=== PATIENT | female | born 1975 | race Caucasian/White ===

== ENCOUNTER 2025-06-23 02:26 | Emergency (ER) | payer OTHER, SELFPAY ==
[2025-06-23 02:33] VITALS: BP 146/97; PULSE 93; O2SAT 100
[2025-06-23 02:35] VITALS: BP 146/97; PULSE 97; RESP 18; TEMP 36.6; O2SAT 100; BMI 33.3
--- NOTE | 2025-06-23 02:40 | CT_ITS ---
PROCEDURE INFORMATION: Exam: CT Abdomen And Pelvis With Contrast Exam date and time: 06/23/2025 3:30 AM Age: 50 years old Clinical indication: Abdominal pain; Additional info: Diffuse low discomfort, constipation, back injury TECHNIQUE: Imaging protocol: Computed tomography of the abdomen and pelvis with contrast. Radiation optimization: All CT scans at this facility use at least one of these dose optimization techniques: automated exposure control; mA and/or kV adjustment per patient size (includes targeted exams where dose is matched to clinical indication); or iterative reconstruction. Contrast material: ISOVUE; Contrast volume: 75 ml; Contrast route: IV; COMPARISON: CT LUMBAR SPINE WO CON 06/23/2025 3:28 AM FINDINGS: Liver: Normal. No mass. Gallbladder and biliary ducts: Cholecystectomy. Pancreas: Normal. No ductal dilation. Spleen: Normal. No splenomegaly. Adrenal glands: Normal. No mass. Kidneys and ureters: Normal. No hydronephrosis. Stomach and bowel: Unremarkable. No obstruction. No mucosal thickening. Appendix: No evidence of appendicitis. Intraperitoneal space: Unremarkable. No free air. No significant fluid collection. Vasculature: Unremarkable. No abdominal aortic aneurysm. Lymph nodes: Unremarkable. No enlarged lymph nodes. Urinary bladder: Unremarkable as visualized. Reproductive: Hysterectomy. Bones/joints: Mild L1 compression deformity. Soft tissues: Unremarkable. IMPRESSION: 1. No acute intra-abdominal findings. 2. Mild L1 compression deformity.
--- NOTE | 2025-06-23 02:40 | CT_ITS ---
PROCEDURE INFORMATION: Exam: CT Lumbar Spine Without Contrast Exam date and time: 06/23/2025 3:28 AM Age: 50 years old Clinical indication: Injury or trauma; Other: Lifting injury ttp low lumbar; Additional info: Lifting injury ttp low lumbar, no deficits TECHNIQUE: Imaging protocol: Computed tomography of the lumbar spine without contrast. Radiation optimization: All CT scans at this facility use at least one of these dose optimization techniques: automated exposure control; mA and/or kV adjustment per patient size (includes targeted exams where dose is matched to clinical indication); or iterative reconstruction. COMPARISON: No relevant prior studies available. FINDINGS: Bones/joints: Mild L1 compression fracture. No associated central canal narrowing. L1-L2: No significant disc bulge or herniation. No severe spinal canal stenosis. No significant neural foraminal narrowing. L2-L3: No significant disc bulge or herniation. No severe spinal canal stenosis. No significant neural foraminal narrowing. L3-L4: No significant disc bulge or herniation. No severe spinal canal stenosis. No significant neural foraminal narrowing. L4-L5: No significant disc bulge or herniation. No severe spinal canal stenosis. No significant neural foraminal narrowing. L5-S1: Left lateral disc bulge and marginal osteophytosis. No severe spinal canal stenosis. Hypertrophic facet arthropathy with moderate left foraminal stenosis. Soft tissues: Unremarkable. IMPRESSION: Mild L1 compression fracture. Degenerative changes with moderate left foraminal stenosis at L5-S1.
[2025-06-23 02:45] VITALS: BP 126/75; PULSE 70; O2SAT 98
[2025-06-23 02:46] LABS: Hematocrit 34.1 % (37.0-47.0); Hemoglobin 11.3 g/dL (12.2-16.2); Immature Granulocytes % 0.3 %; Mean Corpuscular HGB Conc 33.1 g/dL (31.8-35.4); Mean Corpuscular Hemoglobin 28.6 pg (27.0-31.2); Mean Corpuscular Volume 86.3 fl (81-99); Nucleated Red Blood Cells % 0 %; Platelet Count 206 K/mm3 (142-424); Red Blood Count 3.95 M/mm3 (4.20-5.40); Red Cell Distribution Width-SD 42.8 fL; White Blood Count 7.8 K/mm3 (4.8-10.8)
[2025-06-23] MEDS: LIDOCAINE 5% TRANSDERMAL PATCH 1 EACH TD (02:50)
[2025-06-23] MEDS: METHOCARBAMOL 500MG TABLET 500 MG PO (02:50)
[2025-06-23] MEDS: KETOROLAC 30MG/ML VIAL 30 MG IV (02:50)
[2025-06-23] MEDS: ACETAMINOPHEN 500MG TAB 1000 MG PO (02:50)
[2025-06-23 02:56] LABS: Alanine Aminotransferase 42 U/L (12-78); Albumin Level 4.3 g/dl (3.5-5.0); Albumin/Globulin Ratio 1.4 (1.1-1.8); Alkaline Phosphatase 131 U/L (38-126); Anion Gap 13.0 mEq/L (5-15); Aspartate Amino Transferase 40 U/L (14-36); Bilirubin,Total 0.5 mg/dl (0.2-1.3); Blood Urea Nitrogen 11 mg/dl (7-17); Calcium 9.7 mg/dl (8.4-10.2); Carbon Dioxide 23 mmol/L (22.0-30.0); Chloride 106 mmol/L (98-107); Creatinine Clearance Estimated 148 mL/min (50-200); Creatinine,Serum 0.70 mg/dl (0.52-1.04); Estimated Glomerular Filt Rate 89 ml/min (>60); GFR (African American) 108 ML/MIN (>60); Globulin 3.1 g/dL (1.3-3.2); Glucose 175 mg/dl (74-100); Potassium 4.0 mmoL/L (3.5-5.1); Sodium 138 mmol/L (136-145); Total Protein,Serum 7.4 g/dl (6.3-8.2)
[2025-06-23 03:01] VITALS: BP 124/76; PULSE 80; O2SAT 99
[2025-06-23 03:16] VITALS: BP 115/74; PULSE 81; O2SAT 99
--- NOTE | 2025-06-23 03:18 | HMH.EDGENADL ---
Discharge Plan Disposition Patient Disposition: Home, Self-Care Condition: Good Prescriptions Prescriptions: New ketorolac 10 mg tablet 10 mg PO Q8H PRN (Reason: pain) 5 Days Qty: 14 0RF methocarbamol 500 mg tablet 500 mg PO Q6H PRN (Reason: muscle spasm) Qty: 30 0RF lidocaine 5 % adhesive patch,medicated See Rx Instructions .ROUTE .COMPLEX Qty: 15 0RF Rx Instructions: Apply to most painful area and leave on for 12 hours. Remove and leave off for 12 hours before using a new patch. Referrals Follow up/Referrals: Washington Silveira DO [Staff Physician, Orthopedics] - See instructions Referral Note: L1 compression deformity, mild. Recheck. Provider,Referral, MD [Primary Care Provider, Medical] - See instructions Activity Restrictions/Add. Instructions Additional Instructions/Restrictions: You were evaluated in the ER and are believed to be appropriate for discharge at this time. Take the prescribed medications as directed. Do not drive or operate machinery after taking the methocarbamol which is a muscle relaxer. This medication can make you sleepy. You have been prescribed ketorolac (Toradol). This is the same drug class as ibuprofen, Motrin, Aleve. Do not take these medications together. If you choose to use any of these medications, only use one of them. They should not be used in combination. You can also take Tylenol, do not exceed the recommended dose on the bottle. Drink water and eat a small snack each time you take your medications to avoid side effects. Remove the lidocaine patch around 3 PM today, 06/23/2025. Make an appointment with your primary care doctor for reevaluation on Wednesday or Wednesday. They should be the ones to clear you to go back to work. Ask them about referral for MRI and physical therapy if you continue to have pain. You have also been referred to Dr. Silveira with orthopedics for outpatient follow-up. Call their office for an appointment. Return to the ER with any new, worsening, or otherwise concerning symptoms including but not limited to numbness, weakness, incontinence, or anything else you are worried about. Clinical Impressions Clinical Impression: Low back pain, Compression fracture of L1 vertebra Stand Alone Forms Stand Alone Forms: Work/School Release Instructions Patient Instructions: DI for Low Back Pain Discharge ED Provider: Rosaline Otoole Adult HPI General Chief complaint: Back Pain/Injury Stated complaint: back injury, fall, shortness of breath, abd pain Time Seen by Provider: 06/23/25 02:36 Mode of Arrival: Ambulatory Source of Information: Patient Description of Symptoms (Recalled from ER Triage Doc. by RN): pt presents to the Ed d/t lifting a patient and heard in three different spots in her lower back pop. pt states 8/10 back pain. 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 Patient reports a history of rheumatoid arthritis. 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 She was able to get herself up and has been ambulatory since that time but still has low back pain. Patient also reports having constipation and low abdominal pain. No dysuria or hematuria. No fevers or chills. Patient has been able to walk, she has no saddle anesthesia, no bowel or bladder incontinence. No numbness, tingling, or weakness. Pain does not radiate down the legs. She has no history of previous injuries like this. She has no other complaints or concerns. Patient took Aleve a few hours ago. No other medications prior to arrival. Related Data Previous Rx's ?Medication ?Instructions ?Recorded ketorolac 10 mg tablet 10 mg PO Q8H PRN pain 5 days #14 06/23/25 tabs lidocaine 5 % topical patch See Rx Instructions topical 06/23/25 .COMPLEX #15 ea methocarbamol 500 mg tablet 500 mg PO Q6H PRN muscle spasm #30 06/23/25 tabs Allergies Allergy/AdvReac Type Severity Reaction Status Date / Time latex Allergy Anaphylaxis Verified 06/23/25 02:39 codeine AdvReac Other Verified 06/23/25 02:[address] [facility] Disclaimer: The information contained in this section may have been updated after the patient was seen, as this information can be updated by other users. Social History Smoking Status: Unknown if ever smoked alcohol intake: never current occupational status: employed Travel in the last 8 weeks?: None ROS Obtained: Yes Systems reviewed as appropriate & no additional complaints except as documented per HPI Physical Exam General General appearance: alert and in no apparent distress Head Head exam: atraumatic and normocephalic Eye Eye exam: Present PERRL and EOMI ENT ENT exam: Present mucous membranes moist Neck Neck exam: Present normal inspection and full ROM Chest Chest inspection: Present symmetric chest wall rise Respiratory Respiratory exam: Present normal lung sounds bilaterally; Absent respiratory distress, wheezes or stridor Cardiovascular Cardiovascular exam: Present regular rate and normal rhythm Abdominal Exam Abdominal exam: Present soft and tenderness (Mild diffuse lower abdomen); Absent distention, guarding or rebound Extremities Exam Extremities exam: Present full ROM Back Exam Back exam: Present tenderness (Midline low back tenderness in the L3-L5 area with no deformity or step-off, no crepitus, no swelling or bruising); Absent CVA tenderness (R), CVA tenderness (L), sciatic notch tenderness (R) or sciatic notch tenderness (L) Neurological Exam Neurological exam: Present alert, oriented X3, CN II-XII intact, normal gait and other (No saddle anesthesia); Absent motor sensory deficit Psychiatric Psychiatric exam: Present normal affect and normal mood Skin Skin exam: Present warm and dry Medical Decision Making Medical Records Medical records reviewed: Yes I reviewed the patient's medical records. Screening: Per USPSTF and CDC recommendations, given the prevalence of disease in our region, it is our hospital?s policy to screen for HIV and viral Hepatitis for all patients aged 18 and over and those with ongoing risk factors. Patrick Inquiry Pt receiving controlled substance: No Vital Signs: 06/23/25 02:33 06/23/25 02:35 06/23/25 02:45 Temperature 97.8 F Temperature Source Oral Pulse Rate 93 H 70 Pulse Rate [Right Radial] 97 H Respiratory Rate 18 Blood Pressure 146/97 H 126/75 Blood Pressure [Right Arm] 146/97 H Blood Pressure Mean [Right Arm] 113 Blood Pressure Position [Right Arm] Supine 02 Sat by Pulse Oximetry 100 100 98 Oxygen Delivery Method Room Air 06/23/25 03:01 06/23/25 03:16 Temperature Temperature Source Pulse Rate 80 81 Pulse Rate [Right Radial] Respiratory Rate Blood Pressure 124/76 115/74 Blood Pressure [Right Arm] Blood Pressure Mean [Right Arm] Blood Pressure Position [Right Arm] 02 Sat by Pulse Oximetry 99 99 Oxygen Delivery Method Lab Data Lab Results 06/23/25 02:37: WBC 7.8, RBC 3.95 L, Hgb 11.3 L, Hct 34.1 L, MCV 86.3, MCH 28.6, MCHC 33.1, RDW 13.7, Plt Count 206, MPV 10.8 H, Neut % (Auto) 65.5, Lymph % (Auto) 24.9, Williams % (Auto) 4.6, Eos % (Auto) 4.1, Baso % (Auto) 0.6, Neut # (Auto) 5.1, Lymph # (Auto) 2.0, Williams # (Auto) 0.4, Eos # (Auto) 0.3, Baso # (Auto) 0.1, Sodium 138, Potassium 4.0, Chloride 106, Carbon Dioxide 23, Anion Gap 13.0, BUN 11, Creatinine 0.70, Estimated Creat Clear 148, Estimated GFR 89, Est GFR ( Amer) 108, Glucose 175 H, Calcium 9.7, Total Bilirubin 0.5, AST 40 H, ALT 42, Alkaline Phosphatase 131 H, Total Protein 7.4, Albumin 4.3, Globulin 3.1, Albumin/Globulin Ratio 1.4 06/23/25 03:40: Urine Color Yellow, Urine Appearance Clear, Urine pH 6.0, Ur Specific [place] 1.020, Urine Protein Negative, Urine Glucose (UA) Negative, Urine Ketones Negative, Urine Blood Negative, Urine Nitrate Negative, Urine Bilirubin Negative, Urine Urobilinogen 1.0, Ur Leukocyte Esterase Negative, Urine WBC Occasional, Ur Squamous Epith Cells 10-20, Urine Bacteria None, Urine Mucus Trace 06/23/25 02:37 06/23/25 02:37 Orders (Tests/Meds): ED MEDICATIONS Discontinued Medications Generic Name Dose Route Start Last Admin Trade Name Jose Luis PRN Reason Stop Dose Admin Acetaminophen 1,000 mg 06/23/25 02:40 06/23/25 02:50 Acetaminophen 500mg Tab PO 06/23/25 02:41 1,000 mg ONCE ONE Administration Iopamidol 75 ml 06/23/25 03:31 06/23/25 03:35 Iopamidol-370 (76%);100ml Bottle IV 06/23/25 03:32 75 ml ONCE ONE Administration Ketorolac Tromethamine 30 mg 06/23/25 02:40 06/23/25 02:50 Ketorolac 30mg/Ml Vial IV 06/23/25 02:41 30 mg ONCE ONE Administration Lidocaine 1 each 06/23/25 02:40 06/23/25 02:50 Lidocaine 5% Transdermal Patch TD 06/23/25 02:41 1 each ONCE ONE Administration Methocarbamol 500 mg 06/23/25 02:41 06/23/25 02:50 Methocarbamol 500mg Tablet PO 06/23/25 02:42 500 mg ONCE ONE Administration Sodium Chloride 10 ml 06/23/25 03:31 06/23/25 03:35 Sodium Chloride 0.9% 10ml Syr (Rad Only) IV 06/23/25 03:32 10 ml ONCE ONE Administration ORDERS Category Date Time Status CT abdomen pelvis w con Stat Cat Scan 06/23/25 02:[address] lumbar spine wo con Stat Cat Scan 06/23/25 02:40 Completed CBC w/Auto Diff [Complete Blood Count Auto Diff] Stat Lab 06/23/25 02:37 Completed CMP [Comprehensive Metabolic Panel] Stat Lab 06/23/25 02:37 Completed Urinalysis and Microscopic Stat Lab 06/23/25 03:40 Completed Medical Decision Narrative: In summary, this 50-year-old female presents to the emergency department today with low back pain, low abdominal pain. On initial evaluation patient is hemodynamically stable, afebrile, patient was independently ambulatory into the ER. Exam notable for tenderness to palpation over the lower lumbar midline area though there is no focal vertebral tenderness, deformity, crepitus, or step-off. Neurovascularly intact throughout, no saddle anesthesia, no red flag symptoms for cauda equina. Patient has no bowel or bladder incontinence. Patient does report mild diffuse abdominal tenderness to palpation but states a history of constipation. No dysuria or hematuria, no CVA tenderness, no other complaints or concerns. Differential diagnosis includes but is not limited to muscle spasm, discopathy, compression fracture, other osseous injury, considered the possibility of cauda equina but patient has no red flag symptoms for this, regarding abdominal pain could be urinary tract infection, constipation, consider the possibility of bowel obstruction though I have low suspicion for this, mass, among others. Based on these concerns, I ordered basic serum labs, CT imaging of the abdomen and lumbar spine. Patient received multimodal pain control including Tylenol, Toradol, methocarbamol, lidocaine patch Labs personally reviewed demonstrate no leukocytosis, mild anemia with hemoglobin 11.3, normal platelets, CMP nonactionable. CT lumbar spine personally interpreted does not appear to demonstrate significant traumatic injury. See radiology read for final interpretation. Radiology read does comment on L1 compression deformity. There is not significant loss of height, no wedging, no retropulsion of fragments. I suspect that this is actually an old finding because patient does not have tenderness in this area. She has tenderness of the very low lumbar spine in the L3-L5 area but no tenderness superiorly. Her mechanism of injury is also less likely to cause a compression deformity though it is not impossible. Nonetheless, this deformity even if acute does not require acute intervention, this would be managed conservatively outpatient. Patient referred to Dr. Silveira for follow-up. CT abdomen pelvis personally interpreted demonstrates no findings of acute intra-abdominal pathology, see radiology for final dictation. Postvoid residual bladder scan with 1 mL. This significantly reassuring against cauda equina. On reassessment she reports some improvement of symptoms. She does appear more comfortable in the room. I discussed her findings with her including the absence of pathology within the abdomen as well as her L1 abnormality though I have low suspicion that this is acute. Patient is appropriate for discharge at this time. I prescribed Toradol, lidocaine patch, methocarbamol to the patient. She was instructed on use of these medications including to avoid driving or operating machinery with the methocarbamol as it can cause mild sedation. I also gave her explicit instructions on avoiding use of multiple NSAIDs. Patient was given instructions on symptomatic management, follow up instructions, and return precautions for the emergency department. Patient indicated understanding and was discharged in stable condition. Critical Care Critical Care Time Critical Care Time: No
[2025-06-23] MEDS: IOPAMIDOL-370 (76%);100ML BOTTLE 75 ML IV (03:35)
[2025-06-23] MEDS: SODIUM CHLORIDE 0.9% 10ML SYR (RAD ONLY) 10 ML IV (03:35)
[2025-06-23 03:46] LABS: Microscopic, Urine URINE MICROSCOPIC (MICROSCOPIC)
[2025-06-23 03:48] LABS: Bilirubin,Urine Negative (Negative); Color,Urine YELLOW (Yellow); Glucose,Urine (UA) Negative (Negative); Ketones,Urine Negative (Negative); Leukocyte Esterase,Urine Negative (Negative); PH,Urine 6.0 (5.0-8.5); Protein,Urine Negative (Negative); Specific Gravity, Urine 1.020 (1.005-1.030); Urobilinogen,Urine 1.0 EU/dl (0.2)
[2025-06-23 03:59] LABS: Mucus,Urine Trace /lpf
[2025-06-23 04:00] LABS: WBC,Urine Occasional #/hpf (0-3)
[2025-06-23 04:56] VITALS: BP 163/58; PULSE 74; RESP 14; TEMP 36.8; O2SAT 98
--- OUTSIDE RECORDS SUMMARY | 2025-06-23 05:05 | XMS_ITS | Clinical Summary ---
Author Organization Healthcare Address [address] [place] [address] Care Team Providers Care Treatment Technician Name Role Phone Pcp, No Primary Care Provider Unavailabl e Allergies Active Allergy Reactions Criticality Noted Date Comments Codeine Swelling High 10/21/2023 Latex Hives Medium 12/01/2023 Medications albuterol 108 (90 Base) MCG/ACT inhaler Inhale 2 puffs. 10/21/2023 Active naproxen (Naprosyn) 250 MG tablet Take 1 tablet (250 mg) by mouth 2 (two) times a day. Active hydrOXYzine pamoate (Vistaril) 50 MG capsule Take 1 tablet by mouth as need for sleep. If needed, may increase to 2 tabs at bedtime. 60 capsule 3 03/29/2024 Active sulfaSALAzine (Azulfidine) 500 MG tablet Take 1 tablet twice a day for 2 weeks, then 1 tab in morning and 2 tab in evening for 2 weeks, then 2 tablets twice a day. 60 tablet 3 05/22/2024 Active Upadacitinib ER (Rinvoq) 15 MG tablet sustained-relea se 24 hourIndications :Psoriatic arthritis (CMS/HCC) Take 1 tablet (15 mg) by mouth 1 (one) time each day. 30 tablet 3 08/02/2024 Active Family History Medical History Relation Name Comments Cancer Mother Relation Name Status Comments Mother Social History Tobacco Use Types Packs/Day Years Used Date Smoking Tobacco: Former Cigarettes 0.8 34 S tarted: 1988 Passive Smoke Exposure: Past Smokeless Tobacco: Never Tobacco Cessation:Counseling Given: Not Answered Alcohol Use Standard Drinks/Week Comments Never 0 (1 standard drink = 0.6 oz pur e alcohol) PHQ-2 Answer Date Recorded Patient Health Questionnaire-2 Score 0 03/29/2024 Comments Unknown Sex and Gender Information Value Date Recorded Sex Assigned at Not on file Legal Sex Female 9:25 AM EDT Gender Identity Not on file Sexual Orientation Not on file Last Filed Vital Signs Vital Sign Reading Time Taken Comments Blood Pressure 132/84 03/29/2024 8:17 AM EDT Pulse 83 03/29/2024 8:17 AM EDT Temperature 36.7 C (98 F) 03/29/2024 8:17 AM EDT Respiratory Rate 18 03/29/2024 8:17 AM EDT Oxygen Saturation 97% 03/29/2024 8:17 AM EDT Inhaled Oxygen Concentration - - Weight 96.6 kg (212 lb 15.4 oz) 03/29/2024 8:17 AM EDT Height 170.2 cm (5' 7 ) 03/29/2024 8:17 AM EDT Body Mass Index 33.35 03/29/2024 8:17 AM EDT Plan of Treatment Health Maintenance Due Date Last Done Comments [facility]-HIV Screening 1976 [facility]-Infant/Child/Adol SDOH Screenings 1976 [facility]- SDOH Screenings 1994 [facility]-Adult SDOH Screenings 1994 [facility]-DTaP,Tdap,and Td Vaccine s (1 - Tdap) 1995 [facility]-Hepatitis B Vaccines (1 of 3 - 19+ 3-dose series) 1995 CT Colonography 2021 Colonoscopy 2021 FIT-DNA 2021 FIT 2021 FOBT 2021 Sigmoidoscopy 2021 [facility]-Colorectal Cancer Screening 2021 NDR-QVDCO-86 Vaccine ( - season) 2024 [facility]-Depression Screening 03/29/2025 03/29/2024 [facility]-Influenza Vaccine (#1) 2025 [facility]-Zoster Vaccines (1 of 2) 2026 [facility]-Hepatitis C Screening Completed 12/01/2023 [facility]-Obesity Intervention Completed 024, 12/01/2023 HPV Vaccines Aged Out No longer eligi ble based on patient's age to complete this topic [facility]-HIB Vaccines Aged Out No longer e ligible based on patient's age to complete this topic [facility]-Hepatitis A Vaccines Aged Out No longer eligible based on patient's age to complete this topic [facility]-IPV Vaccines Aged Out No longer e ligible based on patient's age to complete this topic [facility]-Pneumococcal Vaccine: Pediatrics (0 to 5 Years) and At-Risk Patients (6 to 49 Years) Aged Out No longer eligible b ased on patient's age to complete this topic [facility]-Rotavirus Vaccines Aged Out No lo nger eligible based on patient's age to complete this topic Procedures Procedure Name Priority Date/Time Associated Diagnosis Comments ACUTE HEPATITIS PANEL Routine 12/01/2023 12:16 PM EST Psoriatic arthritis (CMS/HCC) High risk medication use from Last 3 Months or Most Recently Relevant to Health Maintenance Results * Acute Hepatitis Panel (12/01/2023 12:16 PM EST) Hepatitis B Surf Antigen Negative Negative 12/01/2023 3:35 PM EST [facility] Hepatitis C Antibody Negative Negative 12/01/2023 3:35 PM EST [facility] Hepatitis A Antibody IgM Negative Negative 12/01/2023 3:35 PM EST [facility] Hepatitis B Core Antibody IgM Negative Negative 12/01/2023 3:35 PM EST [facility] Blood Venous blood specimen / Unknown Venipuncture / Unknown 12/01/2023 12:16 PM EST 12/01/2023 12:16 PM EST Ruthie Stewart APRN LAB BLOOD ORDERABLES Mai man Result [facility] [address] [place] [address] from Last 3 Months or Most Recently Relevant to Health Maintenance Care Teams Treatment Technician Relationship Specialty Start Date End Date Pcp, Pari [address] [place] [address] PCP - General Family Medicine 11/09/23
--- OUTSIDE RECORDS SUMMARY | 2025-06-23 05:05 | XMS_ITS | Clinical Summary ---
[facility] Address [address] [place] [address] Care Team Providers Care Lot Boss Name Role Phone Brent Mcdaniel MD Primary Care Provider [phone] Allergies Active Allergy Reactions Criticality Noted Date Comments Codeine Swelling,GI Intolerance High 10/21/2023 Medications Fluticasone-Salm eterol (ADVAIR/WIXELA) 250-50 MCG/ACT DISKUSIndication s:Severe persistent asthma without complication Inhale 1 puff 2 (Two) Times a Day. For prevention of asthma; rinse mouth after each use with water 1 each 5 3 Active albuterol sulfate HFA 108 (90 Base) MCG/ACT inhalerIndicatio ns:Severe persistent asthma without complication Inhale 2 puffs Every 4 (Four) Hours As Needed for Shortness of Air or Wheezing. Use with AeroChamber 18 g 1 3 Active DULoxetine (CYMBALTA) 60 MG capsuleIndicatio ns:Generalized anxiety disorder,Moderat e episode of recurrent major depressive disorder,Agoraph obia Take 1 capsule by mouth Daily. 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 Psoriatic arthritis 10/21/2023 Severe persistent asthma without complication Generalized anxiety disorder 10/21/2023 Family History Medical History Relation Name Comments Breast cancer Mother Relation Name Status Comments Mother Social History Tobacco Use Types Packs/Day Years Used Date Smoking Tobacco: Every Day Cigarettes 1 33 Smokeless Tobacco: Never Tobacco Cessation:Ready to Q uit: Not Asked Alcohol Use Standard Drinks/Week Comments Never 0 (1 standard drink = 0.6 oz pur e alcohol) PHQ-2 Answer Date Recorded Retired PHQ-9: Brief Depression Severity Measure Score 23 10/21/2023 Abuse Screen Answer Date Recorded Unsafe at Home or Work/School Not on file Feels Threatened by Someone? Not on file Does Anyone Keep You from Co ntacting Others or Doint Things Outside the Home? Not on file 10/18/2023 Physical Sign of Abuse Present Not on file 1 12/18/2022 Housing Stability Answer Date Recorded Current Living Arrangements Not on file 09/23 Potentially Unsafe Housing Conditions Not on luis felipe e 10/18/2023 Family and Community Support Answer Juan e Recorded Help with Day-to-Day Activities Not on file 10/18/2023 Lonely or Isolated Not on file 10/18/2023 Employment Answer Date Recorded Do you want help finding or keeping work or a kevin b? Not on file 10/18/2023 Disabilities Answer Date Recorded Concentrating, Remembering, or Making Decisions Difficulty Not on file 10/18/2023 Doing Errands Independently Difficulty Not on fi le 10/18/2023 Education Answer Date Recorded Help with school or training? Not on file Preferred Language Not on file 10/18/2023 PHQ-2 Answer Date Recorded Retired PHQ-9: Brief Depression Severity Measure Score 23 10/21/2023 Comments Unknown Sex and Gender Information Value Date Recorded Sex Assigned at Not on file Legal Sex Female 2:03 PM EST Gender Identity Not on file Sexual Orientation Not on file Last Filed Vital Signs Vital Sign Reading Time Taken Comments Blood Pressure 148/94 10/21/2023 2:42 PM EST Pulse 86 10/21/2023 2:42 PM EST Temperature 36.7 C (98.1 F) 10/21/2023 2:42 PM EST Respiratory Rate - - Oxygen Saturation 97% 10/21/2023 2:42 PM EST Inhaled Oxygen Concentration - - Weight 97.5 kg (215 lb) 10/21/2023 2:42 PM EST Height 170.2 cm (5' 7 ) 10/21/2023 2:42 PM EST Body Mass Index 33.67 10/21/2023 2:42 PM EST Plan of Treatment Health Maintenance Due Date Last Done Comments Annual Gynecologic Pelvic and Breast Exam 1976 Pneumococcal Vaccine 0-49 (1 of 2 - PCV) 1995 TDAP/TD VACCINES (1 - Tdap) 1995 MAMMOGRAM 2016 COLOGUARD 2021 COLON CANCER SCREENING 5 YEAR SIGMOIDOSCOPY 2021 COLONOSCOPY 2021 [address] CANCER SCREENING 2021 CT COLONOGRAPHY 2021 FECAL OCCULT BLOOD TEST 2021 FIT Testing (1 year) 2021 ANNUAL PHYSICAL 10/20/2023 COVID-19 Vaccine ( - 2023- season) 2024 INFLUENZA VACCINE 08/22/2025 HEPATITIS C SCREENING Completed 12/01/[address] [place] [id number] PASSPORT BY [employer] Care Teams Lot Boss Relationship Specialty Start Date End Date Brent Mcdaniel MD [address] [place] [address] [place] [address] PCP - General Internal Medicine 10/21/23
== END 2025-06-23 04:57 | disposition home or self-care (01) ==
LOC: ER 05:03
PROVIDERS: Emergency Provider Emergency Medicine
DX: S32.010A Wedge compression fracture of first lumbar vertebra, initial encounter for closed fracture (principal); M54.50 Low back pain, unspecified
CPT/HCPCS: 72131; 74177; 80053; 81001; 85025; 96374; 99285; J1885; Q9967